=== PATIENT | male | born 1985 | race Caucasian/White ===

== ENCOUNTER → 2021-08-30 15:01 | Outpatient (ROUT) | payer SELFPAY ==
[2021-08-30 15:08] LABS: Urine Drug Scr, Empl Non-NIDA See Separate Report
== END ==
DX: Z02.1 Encounter for pre-employment examination (principal)
CPT/HCPCS: 81099

== ENCOUNTER → 2021-10-18 15:06 | Outpatient (CLI) | payer SELFPAY | PROVIDERS: Referring Provider Internal Medicine; Visit Provider Internal Medicine | DX: Z23 Encounter for immunization (principal) | CPT/HCPCS: 90471; 90686 ==

== ENCOUNTER → 2022-08-08 09:00 | Outpatient (CLI) | payer OTHER, SELFPAY | PROVIDERS: Referring Provider Internal Medicine; Visit Provider Internal Medicine | DX: Z23 Encounter for immunization (principal) | CPT/HCPCS: 90471; 90686 ==

== ENCOUNTER → 2022-10-30 10:21 | Outpatient (CLI) | payer OTHER, SELFPAY ==
--- NOTE | 2022-10-30 10:25 | DI.RAD.S_ITS ---
PROCEDURE: XR THORACIC SPINE 3V INDICATIONS: thoacic back pain TECHNIQUE: 3 views of the thoracic spine were acquired. COMPARISON: [facility], CR, XR THORACIC SPINE 3 VIEWS, 03/17/2021, 16:09. FINDINGS: Bones: No acute fractures or dislocations. No suspicious bony lesions. 12 pairs of ribs are noted, and appear intact where visualized. Soft tissues: No paravertebral stripe thickening. IMPRESSION: No acute osseous abnormality. If the symptoms persist, consider cross sectional imaging such as MRI or CT for further assessment. Approved by: Fermín Hayden M.D. on 10/30/2022 at 11:45
--- NOTE | 2022-10-30 10:25 | DI.RAD.S_ITS ---
PROCEDURE: XR CERVICAL SPINE 4V OR 5V INDICATIONS: neck pain TECHNIQUE: 5 views of the cervical spine acquired. COMPARISON: None. FINDINGS: Bones: No acute fractures or dislocations to the T1 level. Oblique images demonstrate no bony foraminal stenoses. Oblique views demonstrate mild bilateral neural foraminal narrowing at the C3-4 level due to uncovertebral joint and facet hypertrophy Soft tissues: No prevertebral soft tissue swelling. IMPRESSION: Mild cervical spondylosis with mild narrowing of the bilateral C3-4 neural foramina. MRI could be performed for further evaluation if indicated clinically. Approved by: Fermín Hayden M.D. on 10/30/2022 at 11:46
== END ==
PROVIDERS: Referring Provider Physical Medicine & Rehabilitation; Visit Provider Physical Medicine & Rehabilitation
DX: M47.812 Spondylosis without myelopathy or radiculopathy, cervical region (principal); M48.02 Spinal stenosis, cervical region; M54.2 Cervicalgia; M54.6 Pain in thoracic spine
CPT/HCPCS: 72050; 72072

== ENCOUNTER → 2023-08-16 14:32 | Outpatient (CLI) | payer OTHER, SELFPAY | PROVIDERS: Referring Provider Family Medicine; Visit Provider Family Medicine | DX: Z23 Encounter for immunization (principal) | CPT/HCPCS: 90471; 90686 ==

== ENCOUNTER 2024-06-16 08:05 | Emergency (ER) | payer OTHER, SELFPAY ==
[2024-06-16] VITALS (16 sets, daily range): BP systolic 110–183; BP diastolic 71–101; PULSE 60–103; RESP 11–21; TEMP 36.8; O2SAT 95–100; BMI 29.0
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
--- NOTE | 2024-06-16 08:18 | EKG_ITS ---
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
--- NOTE | 2024-06-16 08:18 | DI.RAD.S_ITS ---
PROCEDURE: XR CHEST 1V INDICATIONS: chest pain TECHNIQUE: One view of the chest was acquired. COMPARISON: [facility], CR, XR CHEST 2V, 09/23/2021, 16:15. FINDINGS: Surgical changes and devices: None. Lungs and pleura: Lungs are clear. No pleural effusions or pneumothorax. Mediastinum: Mediastinal contours appear normal. Heart size is normal. Bones and chest wall: No suspicious bony lesions. Overlying soft tissues appear unremarkable. IMPRESSION: No acute cardiopulmonary abnormality is seen. Dictated by: Luis Alberto Owen M.D. on 06/16/2024 at 9:28 Approved by: Luis Alberto Owen M.D. on 06/16/2024 at 9:28
[2024-06-16 08:36] LABS: INR 0.9 (0.9-1.3); Prothrombin Time 10.1 SECONDS (9.4-12.5)
[2024-06-16 08:38] LABS: PTT Partial Thromboplastin Tim 32 SECONDS (25.1-36.5)
[2024-06-16 08:39] LABS: Add Manual Diff / Slide Review NO; Basophils Absolute Auto 0 /uL (0-100); Basophils Percent Auto 0.4 % (0-2); Eosinophils Absolute Auto 200 /uL (0-450); Eosinophils Percent Auto 2.5 % (2-4); Hematocrit 47.7 % (41-53); Hemoglobin 16.3 g/dL (13.5-17.5); Lymphocytes Absolute Auto 2600 /uL (1100-4500); Lymphocytes Percent Auto 37.9 % (25-40); Mean Corpuscular HGB Conc 34.2 % (30-36); Mean Corpuscular Hemoglobin 31.3 PG (26-34); Mean Corpuscular Volume 91.5 fL (80-100); Monocytes Absolute Auto 900 /uL (0-900); Monocytes Percent Auto 12.7 % (3-14); Neutrophils Absolute Auto 3200 /uL (1500-7000); Neutrophils Percent Auto 46.5 % (50-75); Platelet Count 293 X10^3/uL (150-400); Red Blood Cell Count 5.21 X10^6/uL (4.5-5.9); Red Cell Distribution Width 13.2 % (11.6-14.8); White Blood Cell Count 6.9 X10^3/uL (4.5-11.0)
[2024-06-16] MEDS: ASPIRIN 81 MG CHEW TAB 324 MG PO (08:42)
[2024-06-16 08:43] LABS: Alanine Aminotransferase 56 IU/L (<50); Albumin 4.9 g/dL (3.5-5.0); Albumin Globulin Ratio 1.7 (1.0-2.8); Alkaline Phosphatase 56 U/L (38-126); Aspartate Aminotransferase 48 IU/L (17-59); BUN Creatinine Ratio 16.1 (6-22); Bilirubin Total 1.1 mg/dL (0.2-1.3); Blood Urea Nitrogen 15 mg/dL (9-20); Calcium 9.5 mg/dL (8.4-10.2); Carbon Dioxide 22 mmol/L (22-32); Chloride 105 mmol/L (98-107); Creatine Kinase 218 U/L (55-170); Estimated Glomerular Filt Rate > 60 mL/min (>60); Globulin 2.9 g/dL (1.7-4.1); Glucose 121 mg/dL (70-100); HEMOLYSIS < 15 (0-50); Lipase 108 U/L (23-300); Magnesium 2.2 mg/dL (1.6-2.3); Potassium 3.6 mmol/L (3.4-5.1); Sodium 137 mmol/L (137-145); Total Protein 7.8 g/dL (6.3-8.2)
[2024-06-16 08:55] LABS: NT-proBNP (BNP-Adult 18+) < 20 pg/mL (<125); Troponin I < 0.012 ng/mL (0.01-0.034)
[2024-06-16 09:35] LABS: D Dimer < 215 ng/ml (<500)
[2024-06-16] MEDS: NITROGLYCERIN 0.4 MG SL TAB SL (09:41)
--- NOTE | 2024-06-16 10:43 | EKG_ITS ---
[place] [address] [address] [place] [id number] Test Date: 2024-06-16 Pat Name: Travis Quevedo Department: Room: Gender: Male [employer] Tester: GUME : 1985 Requested By: Order Number: [id number] Reading MD: Sal Sprague MD Measurements Intervals [place] Rate: 71 P: -4 MS: 120 QRS: 19 QRSD: 82 T: 7 QT: 362 QTc: 393 Interpretive Statements Normal sinus rhythm ST elevation, probably due to early repolarization Electronically Signed On 06-16-2024 16:44:42 PDT by Sal Sprague MD
[2024-06-16] MEDS: HEPARIN 5,000 UNIT/ML VIAL 5000 UNIT IV (10:52)
[2024-06-16] MEDS: MORPHINE 4 MG/ML INJ IV (10:52)
[2024-06-16] MEDS: HEPARIN DRIP 25,000 UNIT/500 ML IV.SOLN 20.14 UNIT IV (10:54)
[2024-06-16 11:08] LABS: Troponin I < 0.012 ng/mL (0.01-0.034)
--- NOTE | 2024-06-16 11:16 | PC.NURSE ---
This RN gave verbal report to [facility] crew that were transporting patient directly to [facility]. Crew left department with heparin drip running at 11:10am. This RN called and gave verbal report to Adwoa Charge nurse at [facility] ED. This RN gave both parties this department phone number incase there were any additional questions.
== END 2024-06-16 11:10 | disposition short-term general hospital (02) ==
PROVIDERS: Emergency Provider Emergency Medicine
DX: I21.3 ST elevation (STEMI) myocardial infarction of unspecified site (principal); R42 Dizziness and giddiness
CPT/HCPCS: 36415; 71045; 80053; 82550; 83690; 83735; 83880; 84484; 85025; 85379; 85610; 85730; 93005; 93010; 96365; 96375; 99284; J1644; J2270

== ENCOUNTER → 2024-09-05 15:38 | Outpatient (CLI) | payer OTHER, SELFPAY | PROVIDERS: PCP Family Medicine; Referring Provider Internal Medicine; Visit Provider Internal Medicine | DX: Z23 Encounter for immunization (principal) | CPT/HCPCS: 90471; 90656 ==

== ENCOUNTER → 2024-11-19 07:08 | Outpatient (CLI) | payer OTHER, SELFPAY ==
[2024-11-19 08:14] LABS: Add Manual Diff / Slide Review NO; Alanine Aminotransferase 34 IU/L (<50); Albumin 4.2 g/dL (3.5-5.0); Albumin Globulin Ratio 1.8 (1.0-2.8); Alkaline Phosphatase 53 U/L (38-126); Aspartate Aminotransferase 33 IU/L (17-59); BUN Creatinine Ratio 13.4 (6-22); Basophils Absolute Auto 0 /uL (0-100); Basophils Percent Auto 0.4 % (0-2); Bilirubin Total 0.4 mg/dL (0.2-1.3); Blood Urea Nitrogen 13 mg/dL (9-20); Calcium 9.3 mg/dL (8.4-10.2); Carbon Dioxide 30 mmol/L (22-32); Chloride 104 mmol/L (98-107); Cholesterol 221 mg/dL (140-199); Eosinophils Absolute Auto 100 /uL (0-450); Eosinophils Percent Auto 1.4 % (2-4); Estimated Glomerular Filt Rate > 60 mL/min (>60); Globulin 2.3 g/dL (1.7-4.1); Glucose 100 mg/dL (70-100); HDL Cholesterol 57 mg/dL (40-60); HEMOLYSIS < 15 (0-50); Hematocrit 46.3 % (41-53); Hemoglobin 15.8 g/dL (13.5-17.5); LDL Cholesterol Calculated 147 mg/dL (<100); Lymphocytes Absolute Auto 1700 /uL (1100-4500); Lymphocytes Percent Auto 31.9 % (25-40); Mean Corpuscular HGB Conc 34.1 % (30-36); Mean Corpuscular Hemoglobin 29.7 PG (26-34); Mean Corpuscular Volume 87.1 fL (80-100); Monocytes Absolute Auto 500 /uL (0-900); Monocytes Percent Auto 9.9 % (3-14); Neutrophils Absolute Auto 3100 /uL (1500-7000); Neutrophils Percent Auto 56.4 % (50-75); Platelet Count 273 X10^3/uL (150-400); Potassium 4.2 mmol/L (3.4-5.1); Red Blood Cell Count 5.31 X10^6/uL (4.5-5.9); Red Cell Distribution Width 13.3 % (11.6-14.8); Sodium 138 mmol/L (137-145); Total Protein 6.5 g/dL (6.3-8.2); Triglycerides 83 mg/dL (35-150); White Blood Cell Count 5.4 X10^3/uL (4.5-11.0)
== END ==
PROVIDERS: PCP Family Medicine; Referring Provider Family Medicine; Visit Provider Family Medicine
DX: Z00.00 Encounter for general adult medical examination without abnormal findings (principal); K21.9 Gastro-esophageal reflux disease without esophagitis
CPT/HCPCS: 36415; 80053; 80061; 85025